=== PATIENT | female | born 1935 | race Caucasian/White ===

== ENCOUNTER 2016-08-21 20:31 | Emergency (ER) | payer OTHER ==
[2016-08-21] MEDS ORDERED: SODIUM CHLORIDE 1,000 ML IV STA (20:33)
[2016-08-21] MEDS ORDERED: NITROSTAT SL STA ×3 (20:34→21:30)
[2016-08-21] MEDS ORDERED: ASPIRIN EC PO STA (20:34)
[2016-08-21 20:42] LABS: BASOPHILS # (AUTO) 0.1 K/uL (0-0.2); BASOPHILS % (AUTO) 0.8 % (0.0-3.0); EOSINOPHILS # (AUTO) 0.1 K/ul (0.0-0.7); EOSINOPHILS % (AUTO) 1.1 % (0.0-7.0); HEMATOCRIT 40.2 % (37.0-47.0); HEMOGLOBIN 13.9 g/dl (12.0-16.0); IMMATURE GRANULOCYTE % (AUTO) 0.2 % (0.0-5.0); LYMPHOCYTES # (AUTO) 2.9 K/uL (0.60-3.4); LYMPHOCYTES % (AUTO) 31.6 (10.0-50.0); MEAN CORPUSCULAR HEMOGLOBIN 32.9 pg (27.0-31.0); MEAN CORPUSCULAR HGB CONC 34.6 (31.8-35.4); MONOCYTES # (AUTO) 0.6 K/uL (0.4-2.0); MONOCYTES % (AUTO) 6.8 (0-10); NEUTROPHILS # (AUTO) 5.4 K/ul (2.0-6.9); NEUTROPHILS % (AUTO) 59.5; PLATELET COUNT 285 10^3/uL (140-440); RED BLOOD COUNT 4.23 10^6/ul (4.20-5.40); WHITE BLOOD COUNT 9.06 K/ul (4.6-10.2)
[2016-08-21] MEDS ORDERED: ASPIRIN CHEWABLE ONE (20:44)
[2016-08-21 21:09] LABS: ALBUMIN 3.8 g/dL (3.4-5.0); ALBUMIN/GLOBULIN RATIO 0.9; BILIRUBIN,TOTAL 0.48 mg/dL (0.00-1.20); BUN/CREATININE RATIO 9.18; CALCIUM 9.2 mg/dL (8.2-10.2); CREATININE 0.98 mg/dL (0.60-1.30); TROPONIN I 0.019 ng/ml (0.0000-0.4000)
[2016-08-21] MEDS ORDERED: MORPHINE 2 MG/ML SYRINGE IVP STA (21:24)
[2016-08-21] MEDS ORDERED: ZOFRAN 4 MG/2 ML IVP STA (21:25)
--- NOTE | 2016-08-21 21:31 | CT ---
EXAM: CT chest without contrast HISTORY: Chest pain TECHNIQUE: Multi-slice transaxial helical with coronal and sagittal reformed images CONTRAST: None COMPARISON: None FINDINGS: The aorta is atherosclerotic. The ascending thoracic aorta is ectatic 35.5 mm. The heart size is normal. The aortic arch and descending thoracic aorta have normal caliber. A calcified ri ght paratracheal space lymph node is noted. No suspicious lymphadenopathy is appreciated. No peric ardial or pleural effusions are detected. A calcified granuloma is detected in the right middle lob e. Minimal dependent atelectasis is noted. No acute consolidation is appreciated. No suspicious n odules or masses are appreciated. Multiple calcified granulomas are detected in the liver and spleen. The solid organs otherwise norm al their visualized portions of the upper abdomen. The gallbladder is absent without biliary dilata tion. The bones are free of suspicious osteolytic or osteoblastic lesions. IMPRESSION: 1. No acute cardiopulmonary disease. 2. 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 3. Old granulomas disease.
--- NOTE | 2016-08-21 21:36 | ED.PDOC ---
General ED Provider: Dr. HORACE REYNOSO-ER Chief Complaint: Chest Pain Stated Complaint: my chest has been hurting Time Seen by Physician: 21:34 Mode of Arrival: Walk-In Information Source: Patient, Family Exam Limitations: No limitations Primary Care Provider: GLYNN ESPINAL Nursing and Triage Documentation Reviewed and Agree: Yes Cardiovascular Complaint Exam - Chest Pain Complaint/Exam Onset: Gradual Duration: 2-3 days Symptoms Are: Still present Timing: Intermittent Initial Severity: Mild Current Severity: Mild Location: Reports: Diffuse Character: Reports: Dull, Aching, Heaviness, Pressure Aggravating: Reports: None Alleviating: Reports: Nitro Associated Signs and Symptoms: Denies: Diaphoresis, Nausea, Vomiting, Fever, Palpitations, Cough, Hemoptysis, Back pain, Abdominal pain, Dizziness, Short of air, Calf pain, Calf swelling Related Surgical History: Reports: None History of Healthcare-Acquired Pneumonia: Reports: No AMI/ACS Risk Factors: Reports: Diabetes, Hypertension TAD Risk Factors: Reports: Hypertension Pulmonary Embolism Risk Factors: Reports: None Prior Care for this Complaint: No Recent Stress Test: No Recent Echo/LV Function: No Diminshed Breath Sounds: No Reproducible Chest Wall Pain: No Bilateral Pulses Present: Yes Unequal Pulses Noted: No If Risk Factors for AMI/ACS Consider: Cardiac Enzymes Quality Indicator For Non-Traumatic Chest Pain/Syncope: EKG Performed Review of Systems - Review Of Systems Constitutional: Reports: No symptoms Eyes: Reports: No symptoms Ears, Nose, Mouth, Throat: Reports: No symptoms Respiratory: Reports: No symptoms Cardiac: Reports: Chest pain GI: Reports: No symptoms : Reports: No symptoms Musculoskeletal: Reports: No symptoms Skin: Reports: No symptoms Neurological: Reports: No symptoms Endocrine: Reports: No symptoms Hematologic/Lymphatic: Reports: No symptoms All Other Systems: Reviewed and Negative Past Medical History - Past Medical History Previously Healthy: No Endocrine: Reports: DM 2, Dyslipidemia Cardiovascular: Reports: None Respiratory: Reports: None Hematological: Reports: None Gastrointestinal: Reports: None Genitourinary: Reports: None Neuro/Psych: Reports: None Musculoskeletal: Reports: None Cancer: Reports: None - Surgical History General Surgical History: Reports: None - Family History Family History: Reports: None - Social History Smoking Status: Never smoker Hx Substance Use: No Alcohol Screening: None Lives: With family Physical Exam - Physical Exam Appearance: Well-appearing, No pain distress, Well-nourished Pain Distress: Mild Eyes: MYRA, EOMI, Conjunctiva clear ENT: Ears normal, Nose normal, Oropharynx normal Neck: Supple Respiratory: Airway patent Cardiovascular: RRR, Pulses normal, No rub, No murmur GI/: Soft, Nontender, No masses, Bowel sounds normal, No Organomegaly Musculoskeletal: Normal strength, ROM intact, No edema, No calf tenderness Skin: Warm, Dry, Normal color Neurological: Sensation intact, Motor intact, Reflexes intact, Cranial nerves intact, Alert, Oriented Psychiatric: Affect appropriate, Mood appropriate Interpretation - Radiology Interpretation Radiology Interpretation By: Radiologist Radiology Results: Negative Exam Interpreted: CT Scan Re-Evaluation - Re-Evaluation Time of Re-Evaluation: 21:36 Status: Improved Vital Signs Stable: Yes Pain Level: 0 Appearance: NAD Lungs: Clear Skin: Warm and Dry Neuro: Alert and Oriented X3 CV: RRR Physician Notification - Case Discussed Physician Notified: dr castellano--[facility] --accepted via transfer center Time of Notification: 21:42 Critical Care Note - Critical Care Note Total Time (mins): 20 Course - Course Hematology/Chemistry: 08/21/16 20:40 08/21/16 20:10 Orders, Labs, Meds: Lab Review 08/21/16 08/21/16 20:10 20:40 WBC 9.06 RBC 4.23 Hgb 13.9 Hct 40.2 MCV 95.0 MCH 32.9 H MCHC 34.6 RDW Coeff of Lacie 12.4 Plt Count 285 Immature Gran % (Auto) 0.2 Neut % (Auto) 59.5 Lymph % (Auto) 31.6 Todd % (Auto) 6.8 Eos % (Auto) 1.1 Baso % (Auto) 0.8 Immature Gran # (Auto) 0.0 Neut # 5.4 Lymph # 2.9 Todd # 0.6 Eos # 0.1 Baso # 0.1 D-Dimer 0.87 Sodium 139 Potassium 4.0 Chloride 101 Carbon Dioxide 28 Anion Gap 14.0 BUN 9 Creatinine 0.98 Estimated GFR (MDRD) 55.00 BUN/Creatinine Ratio 9.18 Glucose 164 H Calcium 9.2 Total Bilirubin 0.48 AST 19 ALT 13 Alkaline Phosphatase 139 Total Creatine Kinase 51 Troponin I 0.0190 Total Protein 8.0 Albumin 3.8 Globulin 4.2 Albumin/Globulin Ratio 0.90 Amylase 41 Lipase 54 Orders Category Date Time Status EKG-(ED ONLY) Stat CARDIO 08/21/16 20:32 Completed TRANSFER TO OUTSIDE FACILITY .TO [facility] 08/21/16 21:37 Active (SIMONA WAITE) WRITE TRANSFER/SBAR NOTE ONCE CARE 08/21/16 21:37 Active DISCHARGE ASSESSMENT ONCE DISCHARGE 08/21/16 21:37 Active WRITE DISCHARGE NOTE ONCE DISCHARGE 08/21/16 21:37 Active Capacity Analyst [ED TELEPHONE SOLICITOR SUPERVISOR APPLIED] .ONCE EMERGENCY 08/21/16 20:33 Active IV [ED IV/MEDIPORT/POWERPORT] .ONCE EMERGENCY 08/21/16 20:33 Active OXYGEN [ED APPLY O2] .ONCE EMERGENCY 08/21/16 21:40 Active AMYLASE Stat LAB 08/21/16 20:10 Completed CBC W/ AUTO DIFF Stat LAB 08/21/16 20:40 Completed COMPREHENSIVE METABOLIC PANEL Stat LAB 08/21/16 20:10 Completed CREATINE KINASE Stat LAB 08/21/16 20:10 Completed D-DIMER Stat LAB 08/21/16 20:40 Completed LIPASE Stat LAB 08/21/16 20:10 Completed TROPONIN I Stat LAB 08/21/16 20:10 Completed 0.9 % Sodium Chloride [Saline Flush] MEDS 08/21/16 20:33 Ordered 1 syr IVF PRN PRN Aspirin [Aspirin Chewable] MEDS 08/21/16 20:44 Discontinued 324 mg .ROUTE .STK-MED ONE Aspirin [Aspirin EC] MEDS 08/21/16 20:34 Discontinued 325 mg PO ONCE STA Morphine Sulfate [Morphine 2 mg/ml Syringe] MEDS 08/21/16 21:24 Discontinued 2 mg IVP ONCE STA Nitroglycerin [Nitrostat] MEDS 08/21/16 20:34 Discontinued 0.4 mg SL ONCE STA Nitroglycerin [Nitrostat] MEDS 08/21/16 21:05 Discontinued 0.4 mg SL ONCE STA Nitroglycerin [Nitrostat] MEDS 08/21/16 21:30 Discontinued 0.4 mg SL ONCE STA Ondansetron HCl/Pf [Zofran 4 mg/2 ml] MEDS 08/21/16 21:25 Discontinued 4 mg IVP ONCE STA Sodium Chloride 0.9% [Sodium Chloride] 1,000 ml MEDS 08/21/16 20:33 Active IV 100 mls/hr CT CHEST W/O CONTRAST Stat RADS 08/21/16 20:33 Completed Medications Generic Name Dose Route Start Last Admin Trade Name Frerubén PRN Reason Stop Dose Admin Sodium Chloride 1,000 mls @ 100 mls/hr 08/21/16 20:33 08/21/16 20:49 Sodium Chloride IV 08/22/16 06:32 100 mls/hr .Q10H STA Administration Sodium Chloride 1 syr 08/21/16 20:33 Saline Flush IVF PRN PRN To flush IV Discontinued Medications Generic Name Dose Route Start Last Admin Trade Name Freq PRN Reason Stop Dose Admin Aspirin 325 mg 08/21/16 20:34 08/21/16 20:48 Aspirin Ec PO 08/21/16 20:35 Not Given ONCE STA Morphine Sulfate 2 mg 08/21/16 21:24 Morphine 2 Mg/Ml Syringe IVP 08/21/16 21:25 ONCE STA Nitroglycerin 0.4 mg 08/21/16 20:34 08/21/16 20:48 Nitrostat SL 08/21/16 20:35 0.4 mg ONCE STA Administration Nitroglycerin 0.4 mg 08/21/16 21:05 08/21/16 21:07 Nitrostat SL 08/21/16 21:06 0.4 mg ONCE STA Administration Nitroglycerin 0.4 mg 08/21/16 21:30 08/21/16 21:32 Nitrostat SL 08/21/16 21:31 0.4 mg ONCE STA Administration Ondansetron HCl 4 mg 08/21/16 21:25 Zofran 4 Mg/2 Ml IVP 08/21/16 21:26 ONCE STA ELO Risk Score ELO Risk Score: Risk Score Odds of by 30D 0 0.1 (0.1-0.2) 1 0.3 (0.2-0.3) 2 0.4 (0.3-0.5) 3 0.7 (0.6-0.9) 4 1.2 (1.0-1.5) 5 2.2 (1.9-2.6) 6 3.0 (2.5-3.6) 7 4.8 (3.8-6.1) Departure - Departure Time of Disposition: 21:36 Disposition: TSF SHORT-TRM HOSP Discharge Problem: Chest pain Instructions: Chest Pain (ED) Condition: Good Pt referred to PMD for follow-up: Yes Allergies/Adverse Reactions: Allergies No Known Allergies Allergy (Verified 04/06/16 10:33) Home Medications: Ambulatory Orders Calcium Carbonate/Vitamin D3 [Calcium 600 + Vit D 400 Tablet] 1 tab PO DAILY Gemfibrozil 600 mg PO BIDWM 02/08/14 Glyburide [Diabeta] 7.5 mg PO BIDBRS 02/08/14 Hydrocodone/Acetaminophen [Lortab 10-325 mg Tablet] 1 tab PO 5XD PRN 02/08/14 Levothyroxine Sodium [Synthroid] 75 mcg PO DAILY 02/08/14 Omeprazole Magnesium [Prilosec Otc] 20 mg PO DAILY 02/08/14 Potassium Chloride [Klor-Con 10] 10 meq PO DAILY 02/08/14 Trazodone HCl 150 mg PO BEDTIME 02/08/14 Fluoxetine HCl [Prozac] 60 mg PO DAILY 11/18/14 Transfer Form Completed: Yes Disposition Discussed With: Patient, Family
[2016-08-21 22:07] VITALS: BP 208/86; TEMP 99; BMI 25.1
== END 2016-08-21 22:38 | disposition short-term general hospital (02) ==
LOC: ED 20:31
DX: R07.9 Chest pain, unspecified (principal); E11.9 Type 2 diabetes mellitus without complications; I10 Essential (primary) hypertension; E78.5 Hyperlipidemia, unspecified; Z79.899 Other long term (current) drug therapy
CPT/HCPCS: 36415; 80053; 82150; 82550; 83690; 84484; 85025; 85379; 93005; 93010; 96374; 96375; 99285

== ENCOUNTER 2016-08-21 22:43 | Outpatient (CLI) ==
[2016-08-21 22:07] VITALS: BMI 25.1
== END 2016-08-21 22:44 ==
LOC: AMBL 22:43
PROVIDERS: ATTEND Family Medicine
DX: R07.9 Chest pain, unspecified (principal); R53.1 Weakness

== ENCOUNTER 2016-11-03 12:44 | Emergency (ER) | payer OTHER ==
--- NOTE | 2016-11-03 13:00 | ED.PDOC ---
General ED Provider: Dr. MAYTE CHILDRESS JR Chief Complaint: Cough Stated Complaint: pt complains of non productive cough, fever 101 , and weakness. used oxygen and inhaler at home and felt better. [ End ]98.2 68 20 88% 151 Time Seen by Physician: 12:40 Mode of Arrival: Walk-In Information Source: Patient, Family Exam Limitations: Clinical condition, Dementia Primary Care Provider: GLYNN ESPINAL Nursing and Triage Documentation Reviewed and Agree: No Review of Systems - Review Of Systems Constitutional: Reports: Fever, Malaise, Weakness Eyes: Reports: No symptoms Ears, Nose, Mouth, Throat: Reports: No symptoms Respiratory: Reports: Cough, Short of air Cardiac: Reports: Lightheadedness GI: Reports: No symptoms : Reports: No symptoms Musculoskeletal: Reports: No symptoms Skin: Reports: No symptoms Neurological: Reports: Cognitive dysfunction Endocrine: Reports: No symptoms Hematologic/Lymphatic: Reports: No symptoms All Other Systems: Other Past Medical History - Past Medical History Previously Healthy: No Endocrine: Reports: DM 2, Dyslipidemia Cardiovascular: Reports: None Respiratory: Reports: None Hematological: Reports: None Gastrointestinal: Reports: None Genitourinary: Reports: None Neuro/Psych: Reports: None Musculoskeletal: Reports: None Cancer: Reports: None - Surgical History General Surgical History: Reports: None - Family History Family History: Reports: None - Social History Smoking Status: Never smoker Hx Substance Use: No Alcohol Screening: None Physical Exam - Physical Exam Appearance: No pain distress Ill-appearing: Mild Eyes: MYRA, EOMI, Conjunctiva clear ENT: Ears normal, Nose normal, Oropharynx normal Neck: Supple Respiratory: Airway patent, Breath sounds diminished, Rhonchi, Wheezes Cardiovascular: RRR, Pulses normal, No rub, No murmur GI/: Soft, Nontender, No masses, Bowel sounds normal, No Organomegaly Musculoskeletal: Normal strength, ROM intact, No edema, No calf tenderness Skin: Warm, Dry, Normal color Neurological: Sensation intact, Motor intact, Reflexes intact, Cranial nerves intact, Alert Psychiatric: Affect appropriate, Mood appropriate Interpretation - EKG Interpretation Time of EKG #1: 12:59 Rate: Normal Rhythm: Sinus ST Segment: Other (LBBB lat u waves) Physician Notification - Case Discussed Physician Notified: dr cedillo RN Time of Notification: 16:20 (will call back) Physician Notified: DR ESPINAL HERE Time of Notification: 16:48 (ABG) Critical Care Note - Critical Care Note Total Time (mins): 5 Course - Course Hematology/Chemistry: 11/03/16 13:37 11/03/16 13:37 Orders, Labs, Meds: Lab Review 11/03/16 11/03/16 11/03/16 13:00 13:05 13:37 WBC 5.75 RBC 3.89 L Hgb 12.7 Hct 37.1 MCV 95.4 MCH 32.6 H MCHC 34.2 RDW Coeff of Lacie 12.4 Plt Count 179 Immature Gran % (Auto) 0.3 Neut % (Auto) 75.2 Lymph % (Auto) 12.5 Hunt % (Auto) 11.1 H Eos % (Auto) 0.0 Baso % (Auto) 0.9 Immature Gran # (Auto) 0.0 Neut # 4.3 Lymph # 0.7 Hunt # 0.6 Eos # 0.0 Baso # 0.1 Puncture Site R rad O2 Saturation 80.0 L ABG pH 7.282 L* ABG pCO2 54.6 H ABG pO2 50.0 L* ABG HCO3 25.8 ABG Total CO2 27 ABG Base Excess -1 Pedro Test + O2 Delivery Device Oxygen Liter Flow FiO2 % 21.0 Sodium 134 L Potassium 3.7 Chloride 101 Carbon Dioxide 25 Anion Gap 11.7 BUN 14 Creatinine 0.89 Estimated GFR (MDRD) 61.00 BUN/Creatinine Ratio 15.73 Glucose 108 Lactic Acid 12.5 Calcium 8.4 Total Bilirubin 0.47 AST 42 H ALT 23 Alkaline Phosphatase 75 Total Creatine Kinase 229 CK-MB (CK-2) 1.6 CK-MB (CK-2) % 0.47016 Troponin I 0.0150 B-Natriuretic Peptide Total Protein 7.1 Albumin 3.3 L Globulin 3.8 Albumin/Globulin Ratio 0.87 Procalcitonin < 0.05 Influenza A (Rapid) Negative Influenza B (Rapid) Negative 11/03/16 11/03/16 13:46 16:47 WBC RBC Hgb Hct MCV MCH MCHC RDW Coeff of Lacie Plt Count Immature Gran % (Auto) Neut % (Auto) Lymph % (Auto) Hunt % (Auto) Eos % (Auto) Baso % (Auto) Immature Gran # (Auto) Neut # Lymph # Hunt # Eos # Baso # Puncture Site Rbrach O2 Saturation 92.0 L ABG pH 7.318 L ABG pCO2 49.9 H ABG pO2 71.0 L ABG HCO3 25.6 ABG Total CO2 27 ABG Base Excess -1 Pedro Test O2 Delivery Device Nc Oxygen Liter Flow 2.00 FiO2 % 28.0 Sodium Potassium Chloride Carbon Dioxide Anion Gap BUN Creatinine Estimated GFR (MDRD) BUN/Creatinine Ratio Glucose Lactic Acid Calcium Total Bilirubin AST ALT Alkaline Phosphatase Total Creatine Kinase CK-MB (CK-2) CK-MB (CK-2) % Troponin I B-Natriuretic Peptide 886 H Total Protein Albumin Globulin Albumin/Globulin Ratio Procalcitonin Influenza A (Rapid) Influenza B (Rapid) Orders Category Date Time Status ABG DRAW REQUEST Stat CARDIO 11/03/16 12:48 Completed ABG DRAW REQUEST Stat CARDIO 11/03/16 16:47 Completed EKG-(ED ONLY) Stat CARDIO 11/03/16 12:53 Completed NEBULIZER TREATMENT Stat CARDIO 11/03/16 14:29 Completed ED APPLY O2 .ONCE EMERGENCY 11/03/16 12:48 Active ABG Stat LAB 11/03/16 13:00 Completed ABG Stat LAB 11/03/16 16:47 Completed B-TYPE NATRIURETIC PEPTIDE Stat LAB 11/03/16 13:46 Completed BLOOD CULTURE Stat LAB 11/03/16 13:37 Received CBC W/ AUTO DIFF Stat LAB 11/03/16 13:37 Completed COMPREHENSIVE METABOLIC PANEL Stat LAB 11/03/16 13:37 Completed CREATINE KINASE Stat LAB 11/03/16 13:37 Completed LACTIC ACID Stat LAB 11/03/16 13:37 Completed MOLECULAR GROUP A STREP Stat LAB 11/03/16 13:05 Results PROCALCITONIN Stat LAB 11/03/16 13:37 Completed RAPID FLU A/B Stat LAB 11/03/16 13:05 Completed SPUTUM CULTURE Stat LAB 11/03/16 16:20 Received STREP SCREEN Stat LAB 11/03/16 13:05 Results TROPONIN I Stat LAB 11/03/16 13:37 Completed URINALYSIS C & S IF INDICATED Stat LAB 11/03/16 17:17 Ordered Albuterol Sulfate 0.083% Neb [Albuterol 0.083% Neb] MEDS 11/03/16 14:29 Discontinued 1 vial NEB ONCE STA Azithromycin Inj [Zithromax] 500 mg MEDS 11/03/16 13:54 Discontinued 0.9 % Sodium Chloride [Sodium Chloride] 250 ml IV ONCE Ceftriaxone Sodium [Rocephin] MEDS 11/03/16 14:03 Discontinued 1 gm .ROUTE .STK-MED ONE Ceftriaxone Sodium [Rocephin] 1 gm MEDS 11/03/16 13:53 Discontinued 0.9 % Sodium Chloride [Sodium Chloride] 50 ml IV ONCE CHEST, 1V AP ONLY Stat RADS 11/03/16 12:59 Completed Medications Discontinued Medications Generic Name Dose Route Start Last Admin Trade Name Tolu PRN Reason Stop Dose Admin Albuterol Sulfate 1 vial 11/03/16 14:29 11/03/16 14:35 Albuterol 0.083% Neb NEB 11/03/16 14:30 1 vial ONCE STA Administration Ceftriaxone Sodium 1 gm/ 50 mls @ 75 mls/hr 11/03/16 13:53 11/03/16 14:20 Sodium Chloride IV 11/03/16 14:32 75 mls/hr ONCE STA Administration Azithromycin 500 mg/ Sodium 250 mls @ 125 mls/hr 11/03/16 13:54 11/03/16 14: 51 Chloride IV 11/03/16 15:53 125 mls/hr ONCE STA Administration Vital Signs: Temp Pulse Resp BP Pulse Ox 11/03/16 12:53 98.2 F 68 20 151/67 H 88 L Departure - Departure Time of Disposition: 18:22 Disposition: TSF SHORT-TRM HOSP Discharge Problem: Pneumonia Qualifiers: Pneumonia type: due to unspecified organism Laterality: bilateral Lung location : unspecified part of lung Qualifier Code: (J18.9) Pneumonia, unspecified organism Condition: Stable Pt referred to PMD for follow-up: Yes Allergies/Adverse Reactions: Allergies iodine Adverse Reaction (Verified 11/03/16 13:01) Home Medications: Ambulatory Orders Calcium Carbonate/Vitamin D3 [Calcium 600 + Vit D 400 Tablet] 2 tab PO DAILY Hydrocodone/Acetaminophen [Lortab 10-325 mg Tablet] 1 tab PO 5XD PRN 02/08/14 Levothyroxine Sodium [Synthroid] 75 mcg PO DAILY 02/08/14 Omeprazole Magnesium [Prilosec Otc] 20 mg PO DAILY 02/08/14 Potassium Chloride [Klor-Con 10] 10 meq PO DAILY 02/08/14 Trazodone HCl 150 mg PO BEDTIME 02/08/14 Fluoxetine HCl [Prozac] 60 mg PO DAILY 11/18/14 Aspirin [Adult Low Dose Aspirin EC] 81 mg PO DAILY 11/03/16 Atenolol [Tenormin] 25 mg PO DAILY 11/03/16 Atorvastatin Calcium [Lipitor] 20 mg PO BEDTIME 11/03/16 Clopidogrel Bisulfate [Plavix] 75 mg PO DAILY 11/03/16 Glipizide [Glucotrol] 7.5 mg PO BID 11/03/16 Lisinopril [Zestril] 5 mg PO DAILY 11/03/16 Nitroglycerin [Nitrostat] 0.4 mg SL Q5MIN X 3 DOSES PRN 11/03/16
[2016-11-03 13:02] VITALS: BP 151/67; TEMP 98.2; BMI 32.6
[2016-11-03 13:07] LABS: ABG BASE EXCESS -1 (-2.0-2.0); ABG HCO3 25.8 (22.0-26.0); ABG PCO2 54.6 mmHg (35-45); ABG PH 7.282 (7.35-7.45); ABG TCO2 27 (22.0-28.0)
--- NOTE | 2016-11-03 13:18 | DI ---
EXAM: Single view of the chest. History: Chest pain. Comparison: Chest radiograph 11/18/2014, chest CT 08/21/2016 Findings: Heart is mildly enlarged. Left greater than right bilateral interstitial thickening. No definite pleural fluid and no pneumothorax. No acute osseous abnormalities. Impression: Left greater than right bilateral interstitial thickening could represent pneumonia or developing edema. Heart is mildly enlarged.
[2016-11-03 13:33] LABS: FLU INTERNAL QC INTERNAL QC VALID; RAPID FLU A NEGATIVE (NEGATIVE); RAPID FLU B NEGATIVE (NEGATIVE)
[2016-11-03 13:52] LABS: BASOPHILS # (AUTO) 0.1 K/uL (0-0.2); BASOPHILS % (AUTO) 0.9 % (0.0-3.0); HEMATOCRIT 37.1 % (37.0-47.0); HEMOGLOBIN 12.7 g/dl (12.0-16.0); IMMATURE GRANULOCYTE % (AUTO) 0.3 % (0.0-5.0); LYMPHOCYTES # (AUTO) 0.7 K/uL (0.60-3.4); LYMPHOCYTES % (AUTO) 12.5 (10.0-50.0); MEAN CORPUSCULAR HEMOGLOBIN 32.6 pg (27.0-31.0); MEAN CORPUSCULAR HGB CONC 34.2 (31.8-35.4); MEAN CORPUSCULAR VOLUME 95.4 fl (81.0-99.0); MONOCYTES # (AUTO) 0.6 K/uL (0.4-2.0); MONOCYTES % (AUTO) 11.1 (0-10); NEUTROPHILS # (AUTO) 4.3 K/ul (2.0-6.9); NEUTROPHILS % (AUTO) 75.2; PLATELET COUNT 179 10^3/uL (140-440); RED BLOOD COUNT 3.89 10^6/ul (4.20-5.40); WHITE BLOOD COUNT 5.75 K/ul (4.6-10.2)
[2016-11-03] MEDS ORDERED: ROCEPHIN 1 GM in SODIUM CHLORIDE 50 ML IV STA (13:53)
[2016-11-03] MEDS ORDERED: ZITHROMAX 500 MG in SODIUM CHLORIDE 250 ML IV STA (13:54)
[2016-11-03] MEDS ORDERED: ROCEPHIN ONE (14:03)
[2016-11-03] MEDS ORDERED: ALBUTEROL 0.083% NEB NEB STA (14:29)
[2016-11-03 14:47] LABS: ALBUMIN 3.3 g/dL (3.4-5.0); ALBUMIN/GLOBULIN RATIO 0.87; ANION GAP 11.7; BILIRUBIN,TOTAL 0.47 mg/dL (0.00-1.20); BUN/CREATININE RATIO 15.73; CALCIUM 8.4 mg/dL (8.2-10.2); CREATININE 0.89 mg/dL (0.60-1.30); POTASSIUM 3.7 mmol/L (3.5-5.10); TOTAL PROTEIN 7.1 g/dL (5.8-8.1); TROPONIN I 0.015 ng/ml (0.0000-0.4000)
[2016-11-03 14:48] LABS: CREATINE KINASE MB 1.6 ng/ml (0.0-3.6)
[2016-11-03 17:04] LABS: ABG BASE EXCESS -1 (-2.0-2.0); ABG PCO2 49.9 mmHg (35-45); ABG PH 7.318 (7.35-7.45)
[2016-11-03 17:05] LABS: ABG HCO3 25.6 (22.0-26.0); ABG TCO2 27 (22.0-28.0)
== END 2016-11-03 18:43 | disposition short-term general hospital (02) ==
LOC: ED 12:44
DX: J18.9 Pneumonia, unspecified organism (principal); R06.02 Shortness of breath; E11.9 Type 2 diabetes mellitus without complications; E78.5 Hyperlipidemia, unspecified; Z79.899 Other long term (current) drug therapy
CPT/HCPCS: 36415; 80053; 82550; 82553; 82803; 83605; 83880; 84145; 84484; 85025; 87040; 87070; 87651; 87804; 87880; 93005; 93010; 94640; 96365; 96367; 99285

== ENCOUNTER 2016-11-03 18:49 | Outpatient (CLI) | payer OTHER ==
[2016-11-03 13:02] VITALS: BMI 32.6
== END 2016-11-03 18:50 | disposition home or self-care (01) ==
LOC: AMBL 18:49
PROVIDERS: ATTEND Emergency Medicine
DX: J18.9 Pneumonia, unspecified organism (principal)

== ENCOUNTER 2017-01-28 07:56 | Outpatient (CLI) ==
--- NOTE | 2017-01-28 08:48 | DI ---
Exam: Two x-rays of the chest. Comparison: 11/03/2016. Reason for exam: History of pneumonia. FINDINGS: No pneumothorax, pleural effusion, or focal consolidation. Old granulomatous disease is seen within the lung parenchyma. The imaged osseous structures are grossly unremarkable without acu te fracture. Impression: No acute cardiopulmonary process.
--- NOTE | 2017-01-29 08:42 | MAMMO ---
EXAM: Bilateral digital screening mammogram History: Screening Comparison: Bilateral mammogram 07/31/2015 Findings: MLO and CC views of bilateral breasts demonstrate scattered fibroglandular breast parench yma. Stable benign bilateral vascular calcifications and stable benign coarse calcification within the left breast. There are no dominant masses, no suspicious microcalcifications and no architectur al distortions Impression: Benign stable mammogram. Recommend followup routine screening mammography in 1 year. BIRADS 2
== END 2017-01-28 07:57 | disposition home or self-care (01) ==
LOC: RAD 07:56
PROVIDERS: ATTEND Family Medicine
DX: Z12.31 Encounter for screening mammogram for malignant neoplasm of breast (principal); J96.01 Acute respiratory failure with hypoxia; Z87.01 Personal history of pneumonia (recurrent)

== ENCOUNTER 2017-04-13 12:21 | Emergency (ER) ==
[2017-04-13 12:32] VITALS: BP 146/78; TEMP 99.1; BMI 32.0
--- NOTE | 2017-04-13 13:17 | ED.PDOC ---
General ED Provider: Dr. VISHNU ANDRADE Chief Complaint: Fall Stated Complaint: Tripped and fell forward onto her face onto concrete floor. No LOC. Did tear skin on her right elbow. Time Seen by Physician: 13:17 Mode of Arrival: Walk-In Information Source: Patient, Family Exam Limitations: No limitations Primary Care Provider: GLYNN ESPINAL Nursing and Triage Documentation Reviewed and Agree: Yes Trauma/Injury Complaint Exam - Facial Injury Complaint/Exam Location of Pain: Reports: Forehead Mechanism of Injury: Reports: Trauma Onset/Duration: last evening Symptoms Are: Resolved Onset of Pain: Reports: Immediate Initial Severity: Moderate Current Severity: Mild (rifht elbow is "slightly sore") Location: Reports: Discrete (mid-forehead, right elbow torn skin and bruising) Character: Reports: Aching Alleviating: Reports: Rest, OTC meds Aggravating: Reports: None Associated Signs and Symptoms: Reports: Bruising (and skin tear of right elbow) Related History: Reports: Similar episode (previous fall with resulting subdural hematoma) Related Surgical History: Reports: None Facial Findings: Present: Normal findings Differential Diagnoses: Contusion (minor contusion of forehead) - Trauma Complaint/Exam Location of Pain or Injury: Reports: RUE Mechanism of Injury: Reports: Fall Onset/Duration: last evening Symptoms Are: Still present (but lessened) Timing of Treatment: Delayed, Hours (mentioned incident to daughter this AM who brought her to ED for evaluation) Initial Severity: Moderate Current Severity: Mild Character: Reports: Aching Aggravating: Reports: Palpation Alleviating: Reports: Medications (Tylenol) Associated Signs and Symptoms: Reports: Bruising (of right elbow) Related History: Reports: Similar episode (fall with resultant subdural hematoma ) Last Meal: breakfast 3-4 hours ago : No Penetrating Injury Risk Factors: Reports: None Related Surgical History: Reports: None Nexus Low Risk Criteria: No post-midline CS tender, No evidence of intoxicat., No Altered LOC, No focal neuro deficit, No distracting injuries Skin Findings: Present: Tenderness, Laceration (small skin tear of left elbow), Ecchymosis (minor ecchymosis of right elbow) Differential Diagnoses: Contusions (right elbow), Fracture (right elbow) Review of Systems - Review Of Systems Constitutional: Reports: No symptoms Eyes: Reports: No symptoms Ears, Nose, Mouth, Throat: Reports: No symptoms Respiratory: Reports: No symptoms Cardiac: Reports: No symptoms GI: Reports: No symptoms : Reports: No symptoms Musculoskeletal: Reports: No symptoms Skin: Reports: Bruising (right elbow), Other (skin tear of right elbow) Neurological: Reports: No symptoms All Other Systems: Reviewed and Negative Past Medical History - Past Medical History Previously Healthy: No Endocrine: Reports: DM 2, Hypothyroid, Dyslipidemia Cardiovascular: Reports: None Respiratory: Reports: None Hematological: Reports: None Gastrointestinal: Reports: None Genitourinary: Reports: None Neuro/Psych: Reports: None Musculoskeletal: Reports: None Cancer: Reports: None Last Menstrual Period: unknown Other Pertinent Past Medical History: subdural hematoma after a fall - Surgical History General Surgical History: Reports: None - Family History Family History: Reports: None - Social History Smoking Status: Never smoker Hx Substance Use: No Alcohol Screening: None Lives: Alone - Immunizations Tetanus Shot up to Date: Yes (within 5 years) Influenza Vaccine within 12 Months: No Pneumococcal Vaccine up to Date: No Physical Exam - Physical Exam Appearance: Well-appearing, No pain distress, Well-nourished Ill-appearing: None Pain Distress: None Eyes: MYRA, EOMI, Conjunctiva clear ENT: Ears normal, Nose normal, Oropharynx normal Neck: Supple Respiratory: Airway patent, Breath sounds clear, Breath sounds equal, Respirations nonlabored Cardiovascular: RRR, Pulses normal, No rub, No murmur GI/: Soft, Nontender, No masses, Bowel sounds normal, No Organomegaly Musculoskeletal: Normal strength, ROM intact, No edema, No calf tenderness Skin: Warm (minor skin tear and ecchymosis of right elbow), Dry Neurological: Sensation intact, Motor intact, Reflexes intact, Cranial nerves intact, Alert, Oriented Psychiatric: Affect appropriate, Mood appropriate Critical Care Note - Critical Care Note Total Time (mins): 0 Course - Course Orders, Labs, Meds: Orders Category Date Time Status CT HEAD W/O CONTRAST Stat RADS 04/13/17 13:24 Completed Vital Signs: Temp Pulse Resp BP Pulse Ox 04/13/17 12:21 99.1 F 54 L 20 146/78 H 94 L Departure - Departure Time of Disposition: 14:16 Disposition: HOME SELF-CARE Discharge Problem: Contusion of face, Skin tear of elbow without complication Instructions: Concussion (ED), Skin Tear (ED) Condition: Good Pt referred to PMD for follow-up: No (if develops new symptoms, see doctor) Allergies/Adverse Reactions: Allergies iodine Adverse Reaction (Verified 04/13/17 12:34) Home Medications: Ambulatory Orders Calcium Carbonate/Vitamin D3 [Calcium 600 + Vit D 400 Tablet] 2 tab PO DAILY Hydrocodone/Acetaminophen [Lortab 10-325 mg Tablet] 1 tab PO 5XD PRN 02/08/14 Levothyroxine Sodium [Synthroid] 75 mcg PO DAILY 02/08/14 Omeprazole Magnesium [Prilosec Otc] 20 mg PO DAILY 02/08/14 Potassium Chloride [Klor-Con 10] 10 meq PO DAILY 02/08/14 Trazodone HCl 150 mg PO BEDTIME 02/08/14 Fluoxetine HCl [Prozac] 60 mg PO DAILY 11/18/14 Aspirin [Adult Low Dose Aspirin EC] 81 mg PO DAILY 11/03/16 Atenolol [Tenormin] 25 mg PO DAILY 11/03/16 Atorvastatin Calcium [Lipitor] 20 mg PO BEDTIME 11/03/16 Clopidogrel Bisulfate [Plavix] 75 mg PO DAILY 11/03/16 Glipizide [Glucotrol] 7.5 mg PO BID 11/03/16 Lisinopril [Zestril] 5 mg PO DAILY 11/03/16 Nitroglycerin [Nitrostat] 0.4 mg SL Q5MIN X 3 DOSES PRN 11/03/16 Disposition Discussed With: Patient, Family
--- NOTE | 2017-04-13 14:13 | CT ---
EXAM: CT head without contrast HISTORY: Fall with trauma on concrete COMPARISON: CT head 11/15/2015 and 11/18/2014 TECHNIQUE: Serial axial images of the brain were obtained from the skull base to the vertex without IV contrast. FINDINGS: The ventricles, cisterns and sulci demonstrate mild generalized volume loss. The bunch-whi te matter junction is maintained. There is scattered low attenuation throughout the periventricular white matter.No midline shift or mass is identified. There is no abnormal intra or extra-axial fluid collection. The paranasal sinuses and mastoid air cells are clear. The osseous calvarium is intact . IMPRESSION: 1. No acute intracranial abnormality or hemorrhage. 2. Scattered unchanged microangiopathy and generalized volume loss.
== END 2017-04-13 14:35 | disposition home or self-care (01) ==
LOC: ED 12:21
DX: S00.83XA Contusion of other part of head, initial encounter (principal); S51.011A Laceration without foreign body of right elbow, initial encounter; S50.01XA Contusion of right elbow, initial encounter; W01.0XXA Fall on same level from slipping, tripping and stumbling without subsequent striking against object, initial encounter
CPT/HCPCS: 99283

== ENCOUNTER 2017-12-03 09:03 | Outpatient (CLI) ==
--- NOTE | 2017-12-03 13:38 | CT ---
EXAM: CT Abdomen with contrast. CT Pelvis with contrast. HISTORY: Right upper quadrant pain. COMPARISON: 05/25/2014. TECHNIQUE: Multiple axial images of the abdomen and pelvis were obtained following intravenous admin istration of 75 mL of Visipaque 320, low osmolar. Images were reformatted in the sagittal and izquierdo l plane. FINDINGS: Heart is enlarged. No acute abnormality identified in the lung bases. There has been pre vious internal fixation of the left femur. Degenerative changes present throughout the spine. Gallbladder is absent. The liver, pancreas, spleen, adrenal glands, and kidneys without acute abnorm ality. Tiny left renal cyst noted. There is no evidence for bowel obstruction. Duodenal diverticulum noted. Mild colonic diverticulosi s is present. The appendix is not seen. Uterus is absent. Urinary bladder is not well distended al though the wall may be thickened. No free fluid, free air or lymphadenopathy identified. Atheroscle rotic calcifications are present. IMPRESSION: Cystitis versus incomplete bladder distension.
== END 2017-12-03 09:04 | disposition home or self-care (01) ==
LOC: RAD 09:03
PROVIDERS: ATTEND Family Medicine
DX: R10.11 Right upper quadrant pain (principal)
CPT/HCPCS: 36415; 82565

== ENCOUNTER 2018-02-02 08:11 | Outpatient (CLI) | payer OTHER ==
--- NOTE | 2018-02-04 07:27 | MAMMO ---
EXAM: Digital screening mammogram with 3-D tomosynthesis and CAD HISTORY: Screening mammogram COMPARISON: Mammogram 01/28/2017 FINDINGS: Bilateral CC and MLO views of the breasts were performed digitally and demonstrate scatter ed fibroglandular breast density. There is no abnormal nodule or calcification. Benign bilateral vas cular calcifications and benign appearing breast calcifications are present and unchanged. There is no significant interval change. IMPRESSION: No new or suspicious breast mass or calcification RECOMMENDATION: Annual screening mammogram BIRADS category II: Benign findings
== END 2018-02-02 08:12 | disposition home or self-care (01) ==
LOC: RAD 08:11
PROVIDERS: ATTEND Family Medicine
DX: Z12.31 Encounter for screening mammogram for malignant neoplasm of breast (principal)
CPT/HCPCS: 77067

== ENCOUNTER 2018-08-09 13:51 | Outpatient (CLI) ==
--- NOTE | 2018-08-09 15:13 | DI ---
EXAM: Frontal chest, left ribs three views HISTORY: Chest wall pain. FINDINGS: No discrete rib fracture is seen. Heart size is prominent. There is mild to moderate athe rosclerotic disease. Lungs are free of acute infiltrate. No vascular congestion, pneumothorax or pl eural fluid. IMPRESSION: 1. No rib fracture identified. 2. Lungs are grossly clear. 3. Atherosclerotic disease and prominent heart size.
== END 2018-08-09 13:52 | disposition home or self-care (01) ==
LOC: RAD 13:51
PROVIDERS: ATTEND Family Medicine
DX: R07.89 Other chest pain (principal); W19.XXXA Unspecified fall, initial encounter

== ENCOUNTER 2018-09-21 11:00 | Outpatient (RCR) ==
--- NOTE | 2018-09-14 14:32 | RS.OPPTEV2 ---
Date of Note: 09/14/18 Visit #: 1 Number of visits approved by Insurance: n/a Date of Evaluation: 09/14/18 Payer Source: MEDICARE Surgery Performed?: No Treatment Diagnosis: gait difficulty, muscle weakness History of Condition/Mechanism of Injury:: pt and dtr report pt suffered a fall in her home out of the shower 06/2018. States she continues to be unsteady frequently having loss of balance. Prior Level of Function.....Patient was independent with: ADL's, Self Care, Ambulation/Mobility, Community Integration/Access Functional Limitations: Lifting, Carrying, Standing, Bending, Squatting, Ambulation, Community Access/Integration Current Subjective/complaints:: Dtr states pt frequently trips over the throw rugs in her home. She reports that she has tried to encourage pt to remove rugs but pt refuses. pt states she does fine, states "I am just a little wobbly." Treatment Side (optional): N/A *Precautions: fall precautions Medical History Medical History: Hypertension, Diabetes Medical History Comments:: Depression, subdural hematoma due to fall two years ago, fx L patella, heart issues. Surgical History: Cholecystectomy, Hysterectomy Surgical History Comments:: left hip pinning 5+ years ago, appey, heart cath Smoking Status: Never smoker Hx Home Medications: levothyroxine, lisinopril, nitro SL chest pain, plavix, zantac, k dur, trazadone, aspirin, atenolol, lipitor, calcium, prozac, glucotrol , norco, lasix. Patient's Goals: get stronger and decrease risk of falls. Pain Assessment - Pain Description Pain Location: low back pain Pain Description: Aching Current Pain Intensity: 3/10 Functional Outcome Measure Dynamic Gait: 13 - G Codes & Severity Modifier G Codes & Modifier: n/a Source of G Code score: n/a Observation - Observation Posture: Forward Head, Rounded Shoulders, Increased Thoracic Kyphosis, Decreased Lumbar Lordosis Handedness: Right Gait - Gait Pattern Gait Comments: pt amb with flexed posture, decreased step length, as well as increased lat sway with 3 episodes of LOB to R, pt was able to correct with CGA. General Range of Motion: BUE WFL's. BLE WFL's Muscle Strength: BUE 4/5. BLE hip flex 4-/5, knee flex/ext 4/5, ankle DF/PF 4/5 Palpation Palpation Findings: None/Normal Sensation - Sensation Right Upper Extremity: Intact/Normal Left Upper Extremity: Intact/Normal Right Lower Extremity: Intact/Normal Left Lower Extremity: Intact/Normal Balance - Sitting Balance Static Sitting Balance: Good Dynamic Sitting Balance: Good - Standing Balance Static Standing Balance: Fair Dynamic Standing Balance: Poor - Comments Balance Assessment Comments: dyn gait index 13/24 consistent with risk of falls. Gait speed: Interventions - Exercise/Activities/Manual Therapy Exercises/Activities: pt performed PF with green theraband, LAQ, resisted seated hip flex and hip abd with green theraband, isometric hip add x 10 reps. Manual Therapy: NA HOME EXERCISE PROGRAM: pt given written HEP including PF with green theraband, LAQ, resisted seated hip flex, resisted hip abd with green theraband, as well as isometric hip add. - Charges Timed Code Treatment Minutes: 48 Total Treatment Time: 57 Procedures billed for this date of service:: eval med, ex EVALUATION COMPLEXITY LEVEL EVALUATION COMPLEXITY LEVEL: HISTORY: Medium (DM, age, h/o falls, HTN,), EXAM OF BODY SYSTEMS: Medium (strength, balance, transfers, gait, ), CLINICAL PRESENTATION: Medium, CLINICAL DECISION MAKING: Medium Assessment Assessment: pt presents with decreased gait safety, decreased balance as well as strength and endurance. Feel pt would benefit from skilled PT for therex for LE strengthening, balance as well as gait to improve functional mobility. Patient Education: Home Exercise Program, Education of Plan of Care Rehab Potential: Good Short Term Goals Goal #1: pt/dtr independent with initial HEP Goal to be met by: 09/28/18 Goal #2: Improve dyn standing balance as noted by dyn gait index score >16/28 Goal to be met by: 09/28/18 Goal #3: pt amb in dept with no LOB with SBA Goal to be met by: 09/28/18 Goal #4: Improve BLE strength 4 to 4+/5 Goal to be met by: 09/28/18 Skilled Nursing Goals Goal #1: Improved dyn gait index to demonstrate decreased risk of falls Goal to be met by: 10/14/18 Goal #2: Improve gait speed 1.0 meters/sec to be consistent with community ambulator Goal to be met by: 10/14/18 Goal #3: pt amb community distances with no LOB independence Goal to be met by: 10/14/18 Goal #4: pt report no falls during treatment time. Goal to be met by: 10/14/18 Plan - Treatment to be Provided Procedures: Therapeutic Exercises, Therapeutic Activity, Gait Training, Neuromuscular Rehab, Patient Education Modalities: No Modalities - Treatment Plan Frequency: 2-3 X week Duration: 4 weeks Dates of Skilled Nursing Goals: 10/14/18 Expiration date of current Insurance Approval:: n/a - Treatment Code (1) Muscle weakness Code(s): M62.81 - MUSCLE WEAKNESS (GENERALIZED) (2) Abnormality of gait due to impairment of balance Code(s): R26.89 - OTHER ABNORMALITIES OF GAIT AND MOBILITY (3) Gait abnormality Code(s): R26.9 - UNSPECIFIED ABNORMALITIES OF GAIT AND MOBILITY
--- NOTE | 2018-09-16 14:39 | RS.OPPTDN ---
Subjective Date of Note: 09/16/18 Visit #: 2 Number of visits approved by Insurance: Reassess at 10 Date of Evaluation: 09/14/18 Payer Source: MEDICARE Treatment Diagnosis: gait difficulty, muscle weakness Current Subjective/complaints:: Patient says she is not sure why she is here. She says she doesn't think she will work on exercises at home. Son admits pt has had a fall yesterday morning in which she landed on her bottom. She says her "legs gave out." Son asks if we can work on coordination and asks if PT will help her. He adds she falls infrequently (once every two weeks). *Precautions: fall precautions Interventions - Exercise/Activities/Manual Therapy Exercises/Activities: Patient supine beginning general strengthening: (B LE) QS , SAQ 1 1/2#, pillow squeezes, isometric hip abd, isometric hip flexion, alternate LE lift 1 1/2# ea, hip abd in hooklying with red tband, DF with red tband, bridging x 10. All others 2x10. Trunk rotation isometrics x 8. Sitting : Holding 2# ball out in front with bilateral LE lift x 8. 2# ball for diagonals and across body x 6. 1# wand for bilateral shoulder flexion, red tband for scap retraction, postural techniques: shoulder shrugs, sit to stand transfers 2x5, x 10 all else. Standing: nudging ant/post/lateral sway with eyes open and closed x 2 ea. Began stationary bike x 4 mins for/retro prompts given for changing positions and to initiate activity. Total minutes of Exercise: 40 Manual Therapy: NA HOME EXERCISE PROGRAM: pt given written HEP including PF with green theraband, LAQ, resisted seated hip flex, resisted hip abd with green theraband, as well as isometric hip add. - Charges Timed Code Treatment Minutes: 40 Total Treatment Time: 40 Procedures billed for this date of service:: neuro1, ex2 Assessment: Patient presents with son admitting fall yesterday morning at home. She denies dizziness and unsteady today. Patient expressed at times she did not understand why she needs to come to therapy. Educated her on benefits of activities performed and strengthening exercises. She appeared to robert all well. She was able to maintain bal with all standing therex. She should benefit from further strengthening and bal exercises. Patient Education: Education of diagnosis, Home Exercise Program, Home Safety, Education of Plan of Care Short Term Goals Goal #1: pt/dtr independent with initial HEP Goal to be met by: 09/28/18 Goal #2: Improve dyn standing balance as noted by dyn gait index score >16/28 Goal to be met by: 09/28/18 Goal #3: pt amb in dept with no LOB with SBA Goal to be met by: 09/28/18 Goal #4: Improve BLE strength 4 to 4+/5 Goal to be met by: 09/28/18 Penitentiary Goals Goal #1: Improved dyn gait index to demonstrate decreased risk of falls Goal to be met by: 10/14/18 Goal #2: Improve gait speed 1.0 meters/sec to be consistent with community ambulator Goal to be met by: 10/14/18 Goal #3: pt amb community distances with no LOB independence Goal to be met by: 10/14/18 Goal #4: pt report no falls during treatment time. Goal to be met by: 10/14/18 Plan Dates of Penitentiary Goals: 10/14/18 Expiration date of current Insurance Approval:: 10/14/18 PLAN: Patient to continue BIW
--- NOTE | 2018-09-21 12:04 | RS.OPPTDN ---
Subjective Date of Note: 09/21/18 Visit #: 3 Number of visits approved by Insurance: [id number] Date of Evaluation: 09/14/18 Payer Source: MEDICARE Treatment Diagnosis: gait difficulty, muscle weakness Current Subjective/complaints:: Patient says she has been performing HEP daily. She says she still does not know why she is here. Says she is sore on her R buttock since her fall, but denies needing to see her MD. States she "goes all over Walk-in Appointment Scheduler and to stores and doesn't fall, but I fall at home." Argelia denies using any AD in community, but occasionally uses cane at home. She says she did not have any soreness from beginning PT last week or over the weekend. *Precautions: fall precautions Interventions - Exercise/Activities/Manual Therapy Exercises/Activities: Patient supine beginning general strengthening: (B LE) QS , SAQ increased to 3# due to patient request, ball squeezes, hip abd in hooklying with red tband, isometric hip flexion, alternate LE lift increased to 3# ea, bridging(2x5) 2 x 10. Trunk rotation isometrics x 8. 3# wand for chest press and bilateral shoulder flexion x 10. Sitting: Holding 2# ball out in front with bilateral LE lift x 8. 2# ball for diagonals and across body x 6. Increased to 2# wand for bilateral shoulder flexion, red tband for scap retraction, postural techniques: shoulder shrugs, sit to stand transfers 2x5, x 10 all else. Standing: at railing with foam for heel raises, marching, minisquats x 10 reps. bike x 4 mins for/retro prompts given for changing positions and to initiate activity. Total minutes of Exercise: 49 Manual Therapy: NA HOME EXERCISE PROGRAM: pt given written HEP including PF with green theraband, LAQ, resisted seated hip flex, resisted hip abd with green theraband, as well as isometric hip add. - Charges Timed Code Treatment Minutes: 49 Total Treatment Time: 49 Procedures billed for this date of service:: ex2, neuro1 Assessment: Patient often says during exercise, "This is stupid. These exercises are silly." More resistance was added to various exercises and new was added to standing to assist with balance and strength. She experienced some general muscle fatigue into the quads, but otherwise demo steady bal during rail exercises and with ambulation. It was revealed that pt amb independently in community and home, but only falls at home. She admitted she has been falling on area/throw rugs and has since gotten rid of them, but plans to get more. Educated her on fall safety and to avoid rugs at this time and to consider using AD in community. Patient Education: Education of diagnosis, Home Exercise Program, Home Safety, Education of Plan of Care Patient demonstrates compliance with HEP?: Yes Short Term Goals Goal #1: pt/dtr independent with initial HEP Goal to be met by: 09/28/18 Goal #2: Improve dyn standing balance as noted by dyn gait index score >1628 Goal to be met by: 09/28/18 Goal #3: pt amb in dept with no LOB with SBA Goal to be met by: 09/28/18 Goal #4: Improve BLE strength 4 to 4+/5 Goal to be met by: 09/28/18 Nursing Home Goals Goal #1: Improved dyn gait index to demonstrate decreased risk of falls Goal to be met by: 10/14/18 Goal #2: Improve gait speed 1.0 meters/sec to be consistent with community ambulator Goal to be met by: 10/14/18 Goal #3: pt amb community distances with no LOB independence Goal to be met by: 10/14/18 Goal #4: pt report no falls during treatment time. Goal to be met by: 10/14/18 Plan Dates of Nursing Home Goals: 10/14/18 Expiration date of current Insurance Approval:: 10/14/18 PLAN: Continue progressive therex BIW
== END 2018-09-22 23:59 ==
PROVIDERS: ATTEND Family Medicine
DX: R26.9 Unspecified abnormalities of gait and mobility (principal)

== ENCOUNTER 2018-10-14 11:00 | Outpatient (RCR) ==
--- NOTE | 2018-09-23 15:45 | RS.OPPTDN ---
Subjective Date of Note: 09/23/18 Visit #: 4 Number of visits approved by Insurance: 2x4 Date of Evaluation: 09/14/18 Payer Source: MEDICARE Treatment Diagnosis: gait difficulty, muscle weakness Current Subjective/complaints:: Patient asks how much more therapy does she have to do and then says she will do however many visits to get stronger. She says she is doing some of the HEP. She c/o R abdominal soreness today and some back pain without reasoning. *Precautions: fall precautions Interventions - Exercise/Activities/Manual Therapy Exercises/Activities: Patient supine continuing general strengthening: (B LE) QS , SAQ 3# due, ball squeezes, hip abd in hooklying with red tband, isometric hip flexion, alternate LE lift 3# ea, bridging(2x8) 2 x 10. Trunk rotation isometrics x 8. 3# wand for chest press and bilateral shoulder flexion x 10. Alternate LE lift with 3# each ankle with 3# wand for bilateral shoulder flexion with consistent prompts for sequencing 2x10. Sitting: Holding 2# ball out in front with bilateral LE lift x 8. 2# ball for diagonals and across body x 6. Increased to 2# wand for bilateral shoulder flexion, red tband for scap retraction, postural techniques: shoulder shrugs, sit to stand transfers 2x5, x 10 all else. Standing: at railing with foam for heel raises, marching, minisquats x 10 reps. Lateral step ups bilaterally onto foam with consistent instruction of activity. bike x 4 mins for/retro prompts given for changing positions and to initiate activity. Total minutes of Exercise: 45 Manual Therapy: NA HOME EXERCISE PROGRAM: pt given written HEP including PF with green theraband, LAQ, resisted seated hip flex, resisted hip abd with green theraband, as well as isometric hip add. - Charges Timed Code Treatment Minutes: 45 Total Treatment Time: 45 Procedures billed for this date of service:: ex2, neuro1 Assessment: Patient presents with c/o mild back pain and R abdominal soreness unsure of cause. Patient performs all therex well with times needing re- oriented to sequence or how to perform correctly. Patient able to maintain bal during standing therex quite well holding onto railing, but also needed redirecting while on foam in order to perform activity correctly. Patient Education: Education of diagnosis, Home Exercise Program, Home Safety, Education of Plan of Care Short Term Goals Goal #1: pt/dtr independent with initial HEP Goal to be met by: 09/28/18 Progress towards Goal:: Progressing Goal #2: Improve dyn standing balance as noted by dyn gait index score >1628 Goal to be met by: 09/28/18 Goal #3: pt amb in dept with no LOB with SBA Goal to be met by: 09/28/18 Progress towards Goal:: Progressing Goal #4: Improve BLE strength 4 to 4+/5 Goal to be met by: 09/28/18 Progress towards Goal:: Progressing Shelter Goals Goal #1: Improved dyn gait index to demonstrate decreased risk of falls Goal to be met by: 10/14/18 Goal #2: Improve gait speed 1.0 meters/sec to be consistent with community ambulator Goal to be met by: 10/14/18 Goal #3: pt amb community distances with no LOB independence Goal to be met by: 10/14/18 Goal #4: pt report no falls during treatment time. Goal to be met by: 10/14/18 Plan Dates of Shelter Goals: 10/14/18 Expiration date of current Insurance Approval:: 10/14/18 PLAN: Patient to continue with bal and general strengthening BIW
--- NOTE | 2018-09-28 13:30 | RS.OPPTDN ---
Subjective Date of Note: 09/28/18 Visit #: 5 Number of visits approved by Insurance: 8 Date of Evaluation: 09/14/18 Payer Source: MEDICARE Treatment Diagnosis: gait difficulty, muscle weakness Current Subjective/complaints:: Patient says her family have commented about how much better she is walking. She says she performs HEP 2-3 times a day. She often comments about exercises being too easy, although while performing, she admits mild fatigue and that muscles are weak. She denies any falls or LOB since beginning therapy. *Precautions: fall precautions Interventions - Exercise/Activities/Manual Therapy Exercises/Activities: Patient supine continuing general strengthening and bal exercises: (B LE) QS, SAQ 3#, ball squeezes, hip abd in hooklying progressed to green tband, isometric hip flexion, alternate LE lift 3# ea, bridging and ham curls with green tband 2 x 10. SLR with 2# 2x10. Trunk rotation isometrics x 8. 3# wand for chest press and bilateral shoulder flexion x 10. Alternate LE lift with 3# each ankle with 3# wand for bilateral shoulder flexion with consistent prompts for sequencing 2x10. Sitting: Holding 2# ball out in front with bilateral LE lift x 8. 2# ball for diagonals and across body x 6. 2# ball for placement onto floor then raising above head for challenging bal x 5. 2# wand for bilateral shoulder flexion, red tband for scap retraction , postural techniques: shoulder shrugs, sit to stand transfers 2x5, x 10 all else. Standing: at railing for heel raises, marching, hip abd both with 1 1/2 # each ankle, minisquats x 5 reps. Stationary bike x 4 mins for/retro prompts given for changing positions and to initiate activity. Total minutes of Exercise: 46 Manual Therapy: NA HOME EXERCISE PROGRAM: pt given written HEP including PF with green theraband, LAQ, resisted seated hip flex, resisted hip abd with green theraband, as well as isometric hip add. - Charges Timed Code Treatment Minutes: 46 Total Treatment Time: 46 Procedures billed for this date of service:: ex2, neuro1 Assessment: Patient evan improved ease with most all therex with progression. Tbands have been increased per patient's ability and reports of such increased ease. She demo bridging full set with no longer having soreness in her back and more control. She is able to lean fully anteriorally to lift weighted ball off of the floor without LOB. Improved overall trunk control seen with all activities and demo steadier gait with slight increase in stride. Patient's family is also aware of and complimenting her progress. Re-instructed on some exercises for home in order to have her perform correctly as well as reviewing sequencing and instruction on supine/standing therex. Patient Education: Education of diagnosis, Home Exercise Program, Home Safety, Education of Plan of Care Patient demonstrates compliance with HEP?: Yes (Per admission, but questionable correcti) Short Term Goals Goal #1: pt/dtr independent with initial HEP Goal to be met by: 09/28/18 Progress towards Goal:: Progressing Goal #2: Improve dyn standing balance as noted by dyn gait index score > Goal to be met by: 09/28/18 Progress towards Goal:: Progressing Comments:: observably seen, will test next week per tinetti Goal #3: pt amb in dept with no LOB with SBA Goal to be met by: 09/28/18 Progress towards Goal:: Progressing Comments:: so far, patient has met this goal Goal #4: Improve BLE strength 4 to 4+/5 Goal to be met by: 09/28/18 Progress towards Goal:: Met (grossly to the bilateral LEs) Salmon Troll Fisher Goals Goal #1: Improved dyn gait index to demonstrate decreased risk of falls Goal to be met by: 10/14/18 Goal #2: Improve gait speed 1.0 meters/sec to be consistent with community ambulator Goal to be met by: 10/14/18 Goal #3: pt amb community distances with no LOB independence Goal to be met by: 10/14/18 Goal #4: pt report no falls during treatment time. Goal to be met by: 10/14/18 Plan Dates of Alf Goals: 10/14/18 Expiration date of current Insurance Approval:: 10/14/18 PLAN: Patient to continue BIW for progression of bal activities
--- NOTE | 2018-09-29 15:43 | RS.CSNOTE ---
PT Case Note Date of Note: 09/29/18 Note: pt's dtr called to cancel PT appt for 09/30/18 due to pt does not have transportation to get to appt. Number of visits approved by Insurance: n/a Expiration date of current Insurance Approval:: n/a
--- NOTE | 2018-10-05 10:24 | RS.CXNS ---
Date of scheduled appointment: 10/05/18 Type: Cancel Reason for Cancel/NS: cancelled by daughter. Pt had little sleep.
--- NOTE | 2018-10-07 14:37 | RS.OPPTDN ---
Subjective Date of Note: 10/07/18 Visit #: 6 Number of visits approved by Insurance: 2-3x4 Date of Evaluation: 09/14/18 Payer Source: MEDICARE Treatment Diagnosis: gait difficulty, muscle weakness Current Subjective/complaints:: Patient says she has been at the hospital with her son as he had surgery and had to miss her PT appt earlier this week. She says she has been performing HEP and denies any falls lately. She denies any pain. She says her main problem is stepping up onto curbs. *Precautions: fall precautions Interventions - Exercise/Activities/Manual Therapy Exercises/Activities: Patient supine continuing general strengthening and bal exercises: (B LE) QS, SAQ 3#, ball squeezes, hip abd in hooklying progressed to green tband, isometric hip flexion, alternate LE lift 3# ea, bridging and ham curls with green tband 2 x 10. SLR with 2# 2x10. Trunk rotation isometrics x 8. 3# wand for chest press and bilateral shoulder flexion x 10. Alternate LE lift with 3# each ankle with 3# wand for bilateral shoulder flexion with consistent prompts for sequencing 2x10. Sitting: Holding 2# ball out in front with bilateral LE lift x 8. 2# ball for diagonals and across body x 6. 2# ball for placement onto floor then raising above head for challenging bal x 5. 2# wand for bilateral shoulder flexion, increased to green tband for scap retraction, postural techniques: shoulder shrugs, sit to stand transfers 2x5, x 10 all else. Standing: at railing for heel raises, marching, hip abd both with 2 1/2# each ankle, x 10 . Minisquats x 5 reps. Patient amb around several obstacles on floor CGA and then steps onto and over foot pad obstacles. Forward deep step ups onto Balance safety trainer using both hand rails, then only 1 x 4 each leading with R LE, then L. Total minutes of Exercise: 49 Manual Therapy: NA HOME EXERCISE PROGRAM: pt given written HEP including PF with green theraband, LAQ, resisted seated hip flex, resisted hip abd with green theraband, as well as isometric hip add. - Charges Timed Code Treatment Minutes: 49 Total Treatment Time: 49 Procedures billed for this date of service:: neuro1, ex2 Assessment: Patient demo unsteadiness with forward step ups onto bal safety trainer using 1 handrail, maintains bal with using bilateral handrails. She also needs re-oriented to standing exercises at times as she forgets what to do. Also, with some supine therex as well (alternate LE/UE lift). She demo slight unsteadiness also with stepping around and onto foot pads on the floor, but she is able to correct her bal without needing extra assistance from this FRUIT WORKER. Accompanied pt to waiting room to wait for her ride as she stumbled slightly at the end of treatment catching her foot on the carpet. Patient Education: Education of diagnosis, Home Exercise Program, Home Safety, Education of Plan of Care Patient demonstrates compliance with HEP?: Yes Short Term Goals Goal #1: pt/dtr independent with initial HEP Goal to be met by: 09/28/18 Progress towards Goal:: Progressing Goal #2: Improve dyn standing balance as noted by dyn gait index score >1628 Goal to be met by: 09/28/18 Progress towards Goal:: Progressing Goal #3: pt amb in dept with no LOB with SBA Goal to be met by: 09/28/18 Progress towards Goal:: Progressing Goal #4: Improve BLE strength 4 to 4+/5 Goal to be met by: 09/28/18 Progress towards Goal:: Met (grossly to the bilateral LEs) Alf Goals Goal #1: Improved dyn gait index to demonstrate decreased risk of falls Goal to be met by: 10/14/18 Goal #2: Improve gait speed 1.0 meters/sec to be consistent with community ambulator Goal to be met by: 10/14/18 Goal #3: pt amb community distances with no LOB independence Goal to be met by: 10/14/18 Goal #4: pt report no falls during treatment time. Goal to be met by: 10/14/18 Plan Dates of Alf Goals: 10/14/18 Expiration date of current Insurance Approval:: 10/14/18 PLAN: Patient to continue BIW until next Wednesday, then plan to discharge.
--- NOTE | 2018-10-12 13:34 | RS.OPPTDN ---
Subjective Date of Note: 10/12/18 Visit #: 7 Number of visits approved by Insurance: 8 Date of Evaluation: 09/14/18 Payer Source: MEDICARE Treatment Diagnosis: gait difficulty, muscle weakness Current Subjective/complaints:: Patient says she just fell walking to the steps of the [employer]. She says, "It's my own fault. I tripped and fell forward." She denies being hurt and often laughs about it. She says she does not need to seek medical attention. Reports she fell onto her knees. *Precautions: fall precautions Interventions - Exercise/Activities/Manual Therapy Exercises/Activities: Patient supine continuing general strengthening and bal exercises: (B LE) QS, SAQ 3#, ball squeezes, hip abd in hooklying progressed to blue tband, isometric hip flexion, alternate LE lift 3# ea, bridging and ham curls progressed to tband 2 x 10. SLR with 2# 2x10. Trunk rotation isometrics x 8. 3# wand for chest press and bilateral shoulder flexion x 10. Alternate LE lift with 3# each ankle with 4# wand for bilateral shoulder flexion with consistent prompts for sequencing 2x10. Sitting: Holding 2# ball out in front with bilateral LE lift x 8. 2# ball for diagonals and across body x 6. 2# ball for placement onto floor then raising above head for challenging bal x 5. 2# wand for bilateral shoulder flexion, increased to green tband for scap retraction, postural techniques: shoulder shrugs, sit to stand transfers 2x5, x 10 all else. Staationary bike x 3 mins for, 1 min retro. Instruction to get onto device, switch position and assistance for pedal positioning. Patient admitted fatigue several times throughout session and rests were provided along with review of HEP, safety with transfers and gait. Total minutes of Exercise: 38 Manual Therapy: NA HOME EXERCISE PROGRAM: pt given written HEP including PF with green theraband, LAQ, resisted seated hip flex, resisted hip abd with green theraband, as well as isometric hip add. - Charges Timed Code Treatment Minutes: 38 Total Treatment Time: 38 Procedures billed for this date of service:: neuro1, ex2 Assessment: Slight modification of treatment today as pt had more fatigue to LEs and admitted fall just prior to PT session today. She does not demo or observably show need for medical treatment concerning fall. She does not present with any AD and amb fairly quickly down the hallway holding on intermittently to the handrail. She is able to perform therex today without needing to modify weights, just needed more time to rest. Patient Education: Education of diagnosis, Body/Joint mechanics, Home Exercise Program, Home Safety, Education of Plan of Care Patient demonstrates compliance with HEP?: Yes Short Term Goals Goal #1: pt/dtr independent with initial HEP Goal to be met by: 09/28/18 Progress towards Goal:: Progressing Goal #2: Improve dyn standing balance as noted by dyn gait index score >16/28 Goal to be met by: 09/28/18 Progress towards Goal:: Progressing Comments:: Will assess all bal/gait next session per last visit data Goal #3: pt amb in dept with no LOB with SBA Goal to be met by: 09/28/18 Progress towards Goal:: Progressing Comments:: Patient had fall today when getting off of the bus to our facility. Goal #4: Improve BLE strength 4 to 4+/5 Goal to be met by: 09/28/18 Progress towards Goal:: Met (grossly to the bilateral LEs) Legal Billing Clerk Goals Goal #1: Improved dyn gait index to demonstrate decreased risk of falls Goal to be met by: 10/14/18 Comments: Will assess all further gait/bal activities next session Goal #2: Improve gait speed 1.0 meters/sec to be consistent with community ambulator Goal to be met by: 10/14/18 Goal #3: pt amb community distances with no LOB independence Goal to be met by: 10/14/18 Goal #4: pt report no falls during treatment time. Goal to be met by: 10/14/18 Progress towards goal: Not Met (Patient indicates fall today) Plan Dates of Legal Billing Clerk Goals: 10/14/18 Expiration date of current Insurance Approval:: 10/14/18 PLAN: Continue treatment on Wednesday for final session.
--- NOTE | 2018-10-14 14:18 | RS.OPPTDN ---
Subjective Date of Note: 10/14/18 Visit #: 8 Number of visits approved by Insurance: 2x4 Date of Evaluation: 09/14/18 Payer Source: MEDICARE Treatment Diagnosis: gait difficulty, muscle weakness Current Subjective/complaints:: Patient states she is performing "a lot of exercises at home." She reports no falls since last week on [employer]. States she is doing good in reference to her balance and says she is stronger. She says she will be glad to know she is finished with PT sessions. *Precautions: fall precautions Interventions - Exercise/Activities/Manual Therapy Exercises/Activities: Patient sits at EOB for: Shoulder shrugs, 3# wand for bilateral shoulder flexion, blue tband for scap retraction for trunk strengthening 2x10. LAQ 3#, alternate hip flexion 3# ea 2x10. Standin 1/2 # cuff on R wrist (none on L due to c/o soreness in shoulder) throwing/catching ball to CREDIT PROFESSIONAL 2x10, then bouncing on floor and catching x 10. Patient sits and stands for mild resistance nudging ant/post/laterally for bal x 3 each. She performs tasks associated with Dynamic gait/bal scale such as amb over obstacles on floor 2x4 items, then amb around cones placed on floor 2x3 items. Patient amb ~20 ft turning head L to R and then looking up and then down 2x20'. Patient receives instruction and then demo stepping up onto 2 steps using Balance Avionics Integration Engineer and 2 handrails 2x5, then using 1 handrail x 5. Standing at railing: side stepping 2x12' then amb backwards 2x12', heel to toe amb 2x12'. Standing on blue foam pad for weight shifting ant/post then L to R x 8. Minisquats on foam x 8. Multiple rests given between standing and gait assessment activities. She is assessed for gait speed in hallway for LTG. Finishes with stationary bike receiving cues for for/retro position, assistance for pedals and for seat adjustment x 3 mins. Assisted patient to waiting room. Total minutes of Exercise: 42 Manual Therapy: NA HOME EXERCISE PROGRAM: pt given written HEP including PF with green theraband, LAQ, resisted seated hip flex, resisted hip abd with green theraband, as well as isometric hip add. - Charges Timed Code Treatment Minutes: 42 Total Treatment Time: 42 Procedures billed for this date of service:: neuro2, ex1 Assessment: Patient demo improvement with Dynamic gait Scale from to and improvement in gait speed without AD demo steadily and met her LTG of community ambulator. She demo increased general mm strength to bilateral LEs to 4+/5. Difficulty only seen with amb and turning head side to side, but did not have LOB. Some unsteadiness noted with multiple high stepping onto Bal computer technology trainer using 1 handrail, but easily regained bal. Strongly encouraged HEP continuation with her and son and to consider using cane with her in community if she has to amb long distances as she admits much fatigue today. Patient Education: Home Safety Patient demonstrates compliance with HEP?: Yes Short Term Goals Goal #1: pt/dtr independent with initial HEP Goal to be met by: 09/28/18 Progress towards Goal:: Met Goal #2: Improve dyn standing balance as noted by dyn gait index score > Goal to be met by: 09/28/18 Progress towards Goal:: Met Comments:: Goal #3: pt amb in dept with no LOB with SBA Goal to be met by: 09/28/18 Progress towards Goal:: Met Goal #4: Improve BLE strength 4 to 4+/5 Goal to be met by: 09/28/18 Progress towards Goal:: Met (grossly to the bilateral LEs) Cemetery Worker Goals Goal #1: Improved dyn gait index to demonstrate decreased risk of falls Goal to be met by: 10/14/18 Comments: Goal #2: Improve gait speed 1.0 meters/sec to be consistent with community ambulator Goal to be met by: 10/14/18 Progress towards goal: Met Comments: 1.38 Goal #3: pt amb community distances with no LOB independence Goal to be met by: 10/14/18 Progress towards goal: Met Goal #4: pt report no falls during treatment time. Goal to be met by: 10/14/18 Progress towards goal: Not Met (patient had one fall last week getting off of transportation bus) Plan Dates of Cemetery Worker Goals: 10/14/18 Expiration date of current Insurance Approval:: 10/14/18 PLAN: Patient has completed POC. Discharge.
--- NOTE | 2018-10-17 13:34 | RS.OPPTDC ---
Date of Discharge: 10/14/18 Date of Evaluation: 09/14/18 Number of Visits: 8 Treatment Diagnosis: gait difficulty, muscle weakness Current Level of Function: Improved gait and balance score, LE strength 4+/5. Gait speed has increased without AD. She is able to step over and around obstacles on the floor and reaching across body while standing with UE weights while maintaining good balance. Current Complaints/Gains: pt states she feels she is stronger and says she is falling less. Reports her last fall approx 1 1/2 weeks ago was due to catching foot on [employer] step. Son adds she is more stable and performs therex at home. Functional Outcome Measure Dynamic Gait: 18 (improved from on eval) - G Codes & Severity Modifier G Codes & Modifier: n/a Source of G Code score: n/a Observation - Observation Posture: Forward Head, Rounded Shoulders, Increased Thoracic Kyphosis Handedness: Right Interventions - Exercise/Activities/Manual Therapy Exercises/Activities: n/a Manual Therapy: NA HOME EXERCISE PROGRAM: pt given written HEP including PF with green theraband, LAQ, resisted seated hip flex, resisted hip abd with green theraband, as well as isometric hip add. - Charges Timed Code Treatment Minutes: n/a Total Treatment Time: n/a Procedures billed for this date of service:: n/a Assessment Assessment: pt has made progress with dyn balance as well as improved strength. pt has met all STG and progressing toward remaining goal. Patient Education: Education of diagnosis, Home Safety, Education of Plan of Care Rehab Potential: Good Short Term Goals Goal #1: pt/dtr independent with initial HEP Goal to be met by: 09/28/18 Progress towards Goal:: Met Goal #2: Improve dyn standing balance as noted by dyn gait index score >1628 Goal to be met by: 09/28/18 Progress towards Goal:: Met Goal #3: pt amb in dept with no LOB with SBA Goal to be met by: 09/28/18 Progress towards Goal:: Met Goal #4: Improve BLE strength 4 to 4+/5 Goal to be met by: 09/28/18 Progress towards Goal:: Met (grossly to the bilateral LEs) Back Tender Pulp Drier Goals Goal #1: Improved dyn gait index to demonstrate decreased risk of falls Goal to be met by: 10/14/18 Goal #2: Improve gait speed 1.0 meters/sec to be consistent with community ambulator Goal to be met by: 10/14/18 Progress towards goal: Met Goal #3: pt amb community distances with no LOB independence Goal to be met by: 10/14/18 Progress towards goal: Met Goal #4: pt report no falls during treatment time. Goal to be met by: 10/14/18 Progress towards goal: Not Met (patient had one fall last week getting off of transportation bus) Plan Comments: pt requests to be DC and has completed POC.
== END 2018-10-23 23:59 ==
PROVIDERS: ATTEND Family Medicine
DX: R26.9 Unspecified abnormalities of gait and mobility (principal); M62.81 Muscle weakness (generalized)